=== PATIENT | male | born 1950 | race Caucasian/White ===

== ENCOUNTER 2019-07-06 13:13 | Outpatient (REF) | payer OTHER, SELFPAY ==
[2019-07-06 20:55] LABS: Anion Gap 8.7 mmol/L (3-11); BUN 19 mg/dL (7-18); CO2 28.3 mmol/L (21.0-32.0); Calcium 8.9 mg/dL (8.5-10.1); Chloride 106 mmol/L (98-107); Glucose 117 mg/dL (74-106); Hemoglobin A1C 5.3 % (4.5-6.2); Potassium 4.5 mmol/L (3.5-5.1); Sodium 143 mmol/L (136-145)
== END 2019-07-06 13:33 ==
LOC: NCHCN 13:13
PROVIDERS: PCP Family Medicine; Visit Provider Family Medicine
DX: I10 Essential (primary) hypertension (principal); R73.02 Impaired glucose tolerance (oral); Z71.6 Tobacco abuse counseling
CPT/HCPCS: 80048; 83036

== ENCOUNTER 2020-05-27 15:17 | Outpatient (REF) | payer OTHER, SELFPAY ==
[2020-05-27 21:25] LABS: ALT 26 U/L (16-63); AST 17 U/L (15-37); Albumin 4.2 g/dL (3.4-5.0); Alkaline Phosphatase 77 U/L (46-116); BUN 22 mg/dL (7-18); Bilirubin, Total 0.4 mg/dL (0.2-1.0); CREATININE 1.32 mg/dL (0.70-1.30); Calcium 8.7 mg/dL (8.5-10.1); Chloride 105 mmol/L (98-107); Cholesterol 152 mg/dL (<200); Estimated GFR 53.62 (mL/min/1.73m2); Glucose 96 mg/dL (74-106); HDL Cholesterol 37 mg/dL (40-60); Potassium 4.4 mmol/L (3.5-5.1); Sodium 143 mmol/L (136-145); Total Protein 6.9 g/dL (6.4-8.2); Triglyceride 444 mg/dL (<150)
[2020-05-27 21:39] LABS: Hemoglobin A1C 5.4 % (<5.7)
[2020-05-27 21:43] LABS: LDL CHOLESTEROL 58 mg/dL (<100)
== END 2020-05-27 15:37 ==
LOC: NCHCN 15:17
PROVIDERS: PCP Family Medicine; Visit Provider Family Medicine
DX: I10 Essential (primary) hypertension (principal); E78.5 Hyperlipidemia, unspecified
CPT/HCPCS: 80053; 80061; 83721; 83036

== ENCOUNTER 2020-12-12 15:12 | Outpatient (REF) | payer OTHER, SELFPAY ==
[2020-12-12 21:04] LABS: Anion Gap 9.8 mmol/L (3-11); BUN 17 mg/dL (7-18); CO2 26.2 mmol/L (21.0-32.0); CREATININE 1.1 mg/dL (0.70-1.30); Calcium 9.1 mg/dL (8.5-10.1); Chloride 106 mmol/L (98-107); Glucose 85 mg/dL (74-106); Potassium 4.7 mmol/L (3.5-5.1); Sodium 142 mmol/L (136-145)
== END 2020-12-12 15:13 | disposition home or self-care (01) ==
LOC: NCHCN 15:12
PROVIDERS: PCP Family Medicine; Visit Provider Family Medicine
DX: I10 Essential (primary) hypertension (principal); N17.9 Acute kidney failure, unspecified
CPT/HCPCS: 80048

== ENCOUNTER 2021-11-25 17:26 | Outpatient (REF) | payer MEDICARE, SELFPAY ==
[2021-11-25 22:47] LABS: Anion Gap 9.1 mmol/L (3-11); BUN 21 mg/dL (7-18); CO2 24.9 mmol/L (21.0-32.0); Calcium 8.5 mg/dL (8.5-10.1); Calculated LDL 29 mg/dL (<100); Chloride 107 mmol/L (98-107); Cholesterol 95 mg/dL (<200); Glucose 96 mg/dL (74-106); HDL Cholesterol 43 mg/dL (40-60); Potassium 4.6 mmol/L (3.5-5.1); Sodium 141 mmol/L (136-145); Triglyceride 119 mg/dL (<150)
== END 2021-11-25 17:27 | disposition home or self-care (01) ==
LOC: NCHCN 17:26
PROVIDERS: PCP Family Medicine; Visit Provider Family Medicine
DX: I10 Essential (primary) hypertension (principal); E78.6 Lipoprotein deficiency
CPT/HCPCS: 80048; 80061

== ENCOUNTER 2023-05-16 13:22 | Outpatient (REF) | payer MEDICARE, SELFPAY ==
[2023-05-16 17:11] LABS: Anion Gap 10.3 mmol/L (3-11); BUN 20 mg/dL (7-18); CO2 25.7 mmol/L (21.0-32.0); CREATININE 1.1 mg/dL (0.70-1.30); Calcium 9.4 mg/dL (8.5-10.1); Calculated LDL 45 mg/dL (<100); Chloride 106 mmol/L (98-107); Cholesterol 108 mg/dL (<200); Estimated GFR 70.88 (mL/min/1.73m2); Glucose 105 mg/dL (74-106); HDL Cholesterol 46 mg/dL (40-60); Potassium 4.8 mmol/L (3.5-5.1); Sodium 142 mmol/L (136-145); Triglyceride 86 mg/dL (<150)
== END 2023-05-16 13:23 | disposition home or self-care (01) ==
LOC: NCHCN 13:22
PROVIDERS: PCP Family Medicine; Visit Provider Family Medicine
DX: E78.1 Pure hyperglyceridemia (principal); I10 Essential (primary) hypertension; E66.9 Obesity, unspecified; Z71.6 Tobacco abuse counseling; Z00.00 Encounter for general adult medical examination without abnormal findings
CPT/HCPCS: 80048; 80061

== ENCOUNTER 2024-05-31 13:11 | Outpatient (REF) | payer MEDICARE, SELFPAY ==
--- OUTSIDE RECORDS SUMMARY | 2024-05-31 13:26 | XMS_ITS ---
Author Organization Unknown Address [address] [place] [phone] Phone Care Team Providers Care Freelance Writer Name Role Phone TOSHIA Segura Attending Unavailable DANI Segura Primary Unavailable Social History Type Status Start Date End Date Code Code Syst em Sex Male Vital Signs Vital Sign Value Unit Brashear Value Brashear Unit Date/Time Recent/Initial? Code Code System Systolic Blood Pressure 144 mm[Hg] 07/19/2023 14:55 Most Recent 8480-6 LOINC Diastolic Blood Pressure 66 mm[Hg] 07/19/2023 14:55 Most Recent 8462-4 LOINC Systolic Blood Pressure 141 mm[Hg] 07/19/2023 14:55 Initial 8480-6 LOINC Diastolic Blood Pressure 70 mm[Hg] 07/19/2023 14:55 Initial 8462-4 LOINC O2 Saturation 98 % 2023 14:55 Most Recent 92228- 5 LOINC O2 Saturation 95 % 2023 14:55 Initial 73042- 5 LOINC Pulse 57.0 /min 07/19/2023 14:55 Most Recent 8867-4 LOINC Pulse 59.0 /min 07/19/2023 14:55 Initial 8867-4 LOINC Respiration 16 /min 07/19/19 14:55 Most Recent 9279-1 LOINC Respiration 16 /min 07/19/19 14:55 Initial 9279-1 LOINC Temperature 36.2 Solange 97.2 F 07/19/19 24 14:55 Most Recent 8310-5 LOINC Temperature 36.0 Solange 96.8 F 07/19/19 14:55 Initial 8310-5 LOINC Hospital Discharge Instructions Should you have any questions prior to discharge, please contact a member of your healthcare team. If you have left the hospital and have any questions, please contact your primary care physician. Reason For Referral No Data Found Procedures Procedure Name Date Status Code Code Syste m Colsc Flx w/Rmvl Of Tumor Po lyp Lesion Snare Tq 07/19/2023 completed 89406 CPT Colonoscopy, Flexible, Proxi mal To Splenic Flexure; w/Bx, Single/Multiple 07/19/2023 completed 77664 C PT Plan of Treatment No Data Found Encounters Encounter Diagnosis Start Date Code Code Sys tem Encounter for screening for malignant neoplasm of colo n 07/19/2023 SNOMED-CT Personal Care Team Section Performer Name Performer Role Active Date Inactive Da te
[2024-05-31 15:51] LABS: Anion Gap 9.6 mmol/L (3-11); BUN 15 mg/dL (7-18); CO2 28.4 mmol/L (21.0-32.0); CREATININE 1.1 mg/dL (0.70-1.30); Calcium 9.1 mg/dL (8.5-10.1); Calculated LDL 43 mg/dL (<100); Chloride 107 mmol/L (98-107); Cholesterol 114 mg/dL (<200); Estimated GFR 70.44 (mL/min/1.73m2); Glucose 92 mg/dL (74-106); HDL Cholesterol 48 mg/dL (40-60); Potassium 4.3 mmol/L (3.5-5.1); Sodium 145 mmol/L (136-145); Triglyceride 115 mg/dL (<150)
[2024-05-31 16:36] LABS: Hemoglobin A1C 5.4 % (<5.7)
== END 2024-05-31 13:12 | disposition home or self-care (01) ==
LOC: NCHCN 13:11
PROVIDERS: PCP Family Medicine; Visit Provider Family Medicine
DX: I10 Essential (primary) hypertension (principal); R73.09 Other abnormal glucose
CPT/HCPCS: 80048; 80061; 83036

== ENCOUNTER 2024-06-06 11:01 | Outpatient (REF) | payer MEDICARE, SELFPAY ==
--- NOTE | 2024-06-05 14:15 | SKI_PTH ---
PATIENT: Sloan Mosqueda LOC: [facility] U#:[id number] AGE/SX: 73/M ROOM: RE06/06/[address]: Natasha Benites : 1950 BED: DIS: 06/06/2024 SPEC #: [id number] RECD: 06/06/24 12:45 STATUS: TORIE REDio #: [id number] DANII: 06/05/24 14:[address]: Natasha Benites DEPT: Surgical Specimen RECD BY: Cira Bates Tissues: 1 - SKIN BIOPSY(SHAVE/PUNCH) Procedures: SKIN LEVEL 4 Comments: [id number]
== END 2024-06-06 11:02 | disposition home or self-care (01) ==
LOC: NCHCN 11:01
PROVIDERS: PCP Family Medicine; Visit Provider Family Medicine
DX: D48.9 Neoplasm of uncertain behavior, unspecified (principal); L57.0 Actinic keratosis
CPT/HCPCS: 88305